=== PATIENT | female | born 1955 | race Caucasian/White ===

== ENCOUNTER → 2018-05-19 | Outpatient (CLI) | payer MEDICARE, OTHER ==
[~2018-05-19] MED LIST: REGADENOSON INJ 0.4 MG/5 ML DISP.SYRIN IV ONE
--- NOTE | 2018-05-19 18:44 | DRAGON STRESS TEST REPORT ---
INTRAVENOUS LEXISCAN CARDIOLITE STRESS TEST USING SINGLE PHOTON EMMISION COMPUTERIZED TOMOGRAPHIC. DATE OF PROCEDURE: May 19, 2018, INDICATION : Dyspnea on exertion CARDIAC RISK FACTORS: Hypertension, diabetes, dyslipidemia RESTING EKG: Sinus rhythm, no baseline ST-T wave changes noted STRESS EKG: No significant ST segment changes noted with LexiScan bolus REASON FOR TERMINATION: Protocol. PROCEDURE REPORT: Baseline heart rate 84 beats per minute with blood pressure of 124/64. Patient had no significant complaints. Patient was bolused with Lexiscan 0.4 mg intravenously followed by saline bolus. Heart rate at 2 minutes post bolus 100 with a blood pressure of 128/57. 3 minutes post bolus heart rate 95 with blood pressure of 115/64. No significant EKG changes were noted. Patient had no significant complaints during the procedure or postprocedure. CONCLUSIONS: Normal EKG and hemodynamic response to IV LexiScan. NUCLEAR DATA: At rest the patient was given 16.5 millicuries of technetium 99 sestamibi injected intravenously. As per protocol rest gated SPECT images were obtained. On day of stress test, the patient was given intravenous LexiScan at a dose of 0.4 mg in 5 mL intravenously, followed by flush with normal saline. Subsequently the stress dose of 45.5 millicuries of technetium 99 sestamibi was injected intravenously. As per protocol stress gated images were obtained. NUCLEAR INTERPRETATION: Both raw and processed data were used for interpretation. Visual, qualitative, computer-generated quantitative data was used. There was fair myocardial uptake of technetium compound. Motion artifact and soft tissue attenuations were noted. Increased visceral uptake was noted. There were marked increased breast attenuation artifact noted except for mild decreased uptake in the mid anterior and mid inferior wall, most likely related to motion artifact and other attenuation artifact however cannot entirely rule out ischemia. Therefore clinical correlation is requested. Total SDS was 3. No definitive areas of transient perfusion defect noted, No definitive areas of fixed perfusion defect or scars noted. EKG gated imaging showed LV EF at 59 %, rest and stress gated EF similar visually. T. I D. ratio was 0.83. Lung heart ratio noted to be within normal limits 0.27. No significant extracardiac and abnormal radiotracer activities were noted. RV free wall uptake was noted to be mildly increased. IMPRESSION: Also refer to comments under nuclear interpretation. Also test results needs to be interpreted in the context of pretest probability. 1. No definitive areas of transient perfusion defect noted. Mild decreased uptake in the mid anterior and mid inferior wall, most likely related to motion artifact and other attenuation artifact however cannot entirely rule out ischemia. Therefore clinical correlation is requested. 2. There is no definitive scintigraphic evidence of myocardial infarction/scar. 3. EKG gated imaging shows left ventricular ejection fraction of approx. 59 %. RV free wall uptake was noted to be mildly increased. 4. Clinical correlation requested as worse disease and or balanced ischemia could be missed. In approximately 10% of the cases Lexiscan may not cause adequate vasodilatory stress. RECOMMENDATIONS: Aggressive risk factor modification and medical management. Further evaluation may be needed if continued symptoms or other high risk indicators are noted on clinical evaluation. Close cardiology follow-up is also recommended. Clinical correlation with echocardiogram derived ejection fraction. Inability to exercise by itself can lead to increased cardiovascular event risks. Consider cardiology consultation and or follow-up if clinically indicated. I am available for cardiology evaluation and consultation if requested by the audiologist, unless patient already has a education adviser. Dr. Helen Figueroa. MRCP Board certified in cardiology and sleep medicine. Board certified in nuclear cardiology, adult echocardiography. LISA
== END ==
LOC: RAD 06:53
PROVIDERS: ATTEND Internal Medicine Cardiovascular Disease
DX: R06.00 Dyspnea, unspecified (principal)
CPT/HCPCS: 93017; 78452; A9500; J2785; Q9969